=== PATIENT | female | born 1955 | race Caucasian/White ===

== ENCOUNTER 2016-12-08 16:06 | Emergency (ER) | payer OTHER ==
[~2016-12-08] VITALS: Ht 154.9 cm; Wt 68.0 kg
--- NOTE | ~2016-12-08 | CR281 ---
[facility] A Service of [facility] & [facility] RADIOLOGY TEXT RESULTS PATIENT: KALEIGH ELIZABETH LOCATION: CFTX : 55 UNIT #: [id number] AGE: [address]: Iesha Garibay APRN SEX: F ORDER DR: [id number] [facility] [address] [place], [place] [address] [id number] E MR#: [id number] Acc #: [id number] NAME: KALEIGH ELIZABETH : 1955 SEX: F STUDY DATE/TIME: 12/08/2016 16:34 UNIT: [facility] ROOM: STUDY DESCRIPTION: CR Wrist Min 3 View Lt Attending Physician: Iesha Garibay A.P.R.N. Ordering Physician: Iesha Garibay A.P.R.N. Primary Care Physician: Maria Del Carmen Anderson Aprn MEDICAL IMAGING REPORT This report is preliminary unless electronic signature is present EXAM Left wrist INDICATIONS Left wrist pain status post fall. FINDINGS Three views of the left wrist without comparison. There is no acute fracture or dislocation. Alignment is anatomic. No foreign body. IMPRESSION No acute findings. Dictated by... Johnny Watters M.D. THIS IS AN ELECTRONICALLY VERIFIED REPORT Johnny Watters M.D. at 12/09/2016 8:12 AM Trever/liana TD: 12/09/2016 03:53 JOB #: [id number] MEDICAL IMAGING REPORT Page 1 of 1 COPY
== END 2016-12-08 22:40 | disposition home or self-care (01) ==
LOC: CED 16:06 → CFTX 16:06
DX: S63.502A Unspecified sprain of left wrist, initial encounter (principal); W01.0XXA Fall on same level from slipping, tripping and stumbling without subsequent striking against object, initial encounter; Y92.69 Other specified industrial and construction area as the place of occurrence of the external cause
CPT/HCPCS: 29125; 73110; 99283